=== PATIENT | female | born 1945 | race Caucasian/White ===

== ENCOUNTER 2018-02-27 09:40 | Inpatient (IN) ==
--- NOTE | 2018-02-26 22:04 | Discharge Summary ---
<Giuliano Galvez - Last Filed: 02/27/18 12:19> Orders not resulted at time of discharge: Pending orders 02/27/18 00:01 XR knee RT limited 1-2V [XR] Routine H/H [Hemoglobin and Hematocrit] [HEME] Routine Date of Encounter: 02/27/18 - Discharge Diagnosis (1) Morbid obesity with BMI of 40.0-44.9, adult Priority: Secondary Status: Chronic (2) Arthritis of right hip Priority: Primary Status: Chronic (3) Status post total hip replacement, right Priority: Primary Status: Acute (4) Decreased GFR Priority: Secondary Status: Chronic (5) HTN (hypertension) Priority: Secondary Status: Chronic Qualifiers: Hypertension type: essential hypertension Qualified Code(s): I10 - Essential (primary) hypertension (6) Hypothyroid Priority: Secondary Status: Chronic Qualifiers: Hypothyroidism type: unspecified Qualified Code(s): E03.9 - Hypothyroidism , unspecified - Hospital Course Hospital course: Ms. Beaulieu is a 73 year old female - Time Spent with Patient Total time spent providing and/or coordinating discharge services: - Discharge Medications Home Medications: Amlodipine Besylate 10 mg PO QPM 06/15/16 [History] Benazepril HCl [Lotensin] 40 mg PO QPM 06/15/16 [History] Carvedilol 12.5 mg PO BID 06/15/16 [History] Ergocalciferol (VITAMIN D2) [Vitamin D2] 50,000 unit PO THAKUR 06/15/16 [History] FLUoxetine HCl [Prozac] 20 mg PO HS 06/15/16 [History] Levothyroxine [Synthroid] 50 mcg PO DAILY 06/15/16 [History] HYDROcodone/Acet 5/325 mg [[place] 5-325 mg] 1 tab PO Q6H PRN 7 Days #28 tab 02/26 [Rx] Rivaroxaban [Xarelto] 10 mg PO DAILY 10 Days #10 tablet 02/26/18 [Rx] Allergies/Adverse Reactions: 3 Allergy/AdvReac Type Severity Reaction Status Date / Time aspirin Allergy Rash Verified 11/11/16 13:14 celecoxib [From Celebrex] Allergy Rash Verified 11/11/16 13:14 cephalexin [From Keflex] Allergy Rash Verified 11/11/16 13:14 ciprofloxacin [From Cipro] Allergy Hives Verified 11/11/16 13:14 clindamycin Allergy Rash Verified 02/27/18 10:26 meloxicam [From Mobic] Allergy Rash Verified 11/11/16 13:14 metronidazole [From Flagyl] Allergy Rash Verified 11/11/16 13:14 nabumetone [From Relafen] Allergy Rash Verified 11/11/16 13:14 Penicillins Allergy Rash Verified 11/11/16 13:14 Sulfa (Sulfonamide Allergy Rash Verified 11/11/16 13:14 Antibiotics) tramadol Allergy Rash Verified 02/27/18 10:27 Iodinated Contrast- Oral and AdvReac Flushing Verified 04/20/17 09:18 IV Dye meperidine [From Demerol] AdvReac Redness of Verified 11/11/16 13:14 Skin morphine AdvReac Redness of Verified 11/11/16 13:14 Skin Oxycodone [From OxyContin] AdvReac Itching Verified 11/11/16 13:14 Primary care physician: SONA Harp - Patient Status Disposition: Transfer Inpatient Rehab Fac Condition: Good - Discharge Instructions Follow Up With: Giuliano Galvez MD [Partnered Physician] - 03/29/18 4:35 pm Belkis Ferguson PAC [Physician Web Operations Manager] - 03/09/18 9:30 am (March 17, 2018 at 09:00 AM) Tisha Hendrix, USER EXPERIENCE DESIGNER [Primary Care Provider] - Additional Instructions: Discharge Instructions: Total Hip Replacement Please call [facility] ([phone]), your Primary Care Physician, or report to the Emergency Room if you have any of the following symptoms: Nausea, vomiting, fever greater that 101.5, swelling, chest pain, shortness of breath, increased pain/redness/drainage/odor for your incision site, numbness/ tingling, or any other concerning symptoms. ACTIVITY:Weight-bearing as tolerated for 8 weeks with hip dislocation precautions that physical therapy taught you. You may progress as tolerated under the guidance of your physical therapist. You do not need to sleep with a pillow between your legs. You can also seep on the operative side or on your stomach. Incentive Spirometer 10 times an hour. MEDICATIONS: Upon discharge resume your home medications. Take all the medications as prescribed. Take a stool softener if taking narcotic pain medications. Stool softeners are only effective if you drink enough fluids. Drink 6-8 glass of water or fluids a day, unless this is not allowed for another health problem. Despite using stool softeners, if you haven't had a bowel movement in 3 days, please switch to a gentle laxative. Gentle laxatives are sold over the counter. You should have a bowel movement within 24 hours, if not call the office. You will be discharged from the hospital with a prescription for pain medication. You are encouraged to decrease the use of narcotic pain medication as tolerated. Should you require a refill, please call the office. [facility] prescribes narcotic pain medication for only 4-6 weeks after surgery. If you require pain medication beyond this time period, you may be referred to your Primary Care Physician or to the Pain Clinic for further evaluation. Plan ahead for refills on pain medication as many narcotics either need to be picked up at the office or mailed. It is best to call 48-72 hours in advance of needing a prescription refill so you don't run out of medication. To help control the post-operative pain, you may take NSAIDs (Aleve,Advil, Motrin, ibuprofen, naprosyn) or Tylenol as prescribed on the bottle in addition to the pain medication. ANTICOAGULATION (blood thinners): Continue your Aspirin, Lovenox or Coumadin as prescribed to help prevent a blood clot in the leg or in the lungs. As long as your incision remains dry and you tolerate the NSAIDs (Aleve, Advil, Motrin, Ibuprofen, Naprosyn), it is OK to use the NSAIDS while you are taking your anticoagulation medication. Should your incision start to drain, stop the NSAID and contact our office. Common symptoms of blood clot in the legs include: localized pain, swelling, calf tenderness, redness or discoloration of the skin. Blood clot in the lung symptoms include: shortness of breath, rapid pulse, sweating, and chest pain that worsens with deep breathing, coughing up blood, lightheadedness, feelings of anxiety. If you experience any of these symptoms notify your physician immediately, go to the emergency room, or if having trouble breathing, call 911. WOUND CARE: Leave the dressing on for 7 to 10days. You may change the dressing if it is saturated greater than 50%. Do not get the dressing wet at anytime. Wash your hands with antibacterial soap, rinse and dry prior to any wound care. If you have ant the visiting nurse or rehab facility can remove the stapes 10-14 days after surgery and place steri-strips across the wound. Leave the steri-strips in place until they fall off on their own. You may let water from the shower run on top of the steri-strips. If you do not have a visiting nurse or rehab facility, you will need to return to the office at 10-14 days for the ant to be removed. If you have itching or redness around the dressing call the office. FOLLOW-UP: Please follow up with your surgeon in the orthopedic clinic in 6 weeks from the day of surgery. If you have ant that need to be removed, you will need to come back to the office in 10-14 days from the day of surgery. <Taylor Solis - Last Filed: 03/02/18 15:18> Date of Encounter: 03/02/18 Time of Encounter: 15:18 - Discharge Diagnosis (1) Status post total hip replacement, right Priority: Primary Status: Acute (2) Morbid obesity with BMI of 40.0-44.9, adult Priority: Secondary Status: Chronic (3) Arthritis of right hip Priority: Secondary Status: Chronic (4) Decreased GFR Priority: Secondary Status: Chronic (5) HTN (hypertension) Priority: Secondary Status: Chronic Qualifiers: Hypertension type: essential hypertension Qualified Code(s): I10 - Essential (primary) hypertension (6) Hypothyroid Priority: Secondary Status: Chronic Qualifiers: Hypothyroidism type: unspecified Qualified Code(s): E03.9 - Hypothyroidism , unspecified (7) Obesity Priority: Secondary Status: Chronic Qualifiers: Obesity type: due to excess calories Obesity classification: adult class 3 (BMI >= 40) Serious obesity comorbidity presence: without serious comorbidity Body mass index: BMI 50.0-59.9 Qualified Code(s): E66.01 - Morbid (severe) obesity due to excess calories; Z68.43 - Body mass index (BMI) 50-59.9 , adult - Hospital Course Hospital course: Ms. Beaulieu is a 73 year old female who is s/p Right THR robotic 02/27/14 with history of CKD, HTN, hypothyroidsm, decreased GFR, obesity. She developed acute blood loss anemia on POD#2 and received 1 unit RBC. She is stable for discharge. She was evaluated by Dr. Galvez this morning and recommended ready for discharge. Afebrile, vital signs stable. Dressings intact with minimal drainage. No calf tenderness to palpation. Grossly NV intact Labs reviewed. H/H - 9.8/29.8.received 1 unit RBC yesterday Pain control: adequate Participating in PT. All questions and concerns addressed. Educated on use of incentive spirometer. Encouraged ambulation and proper hydration. Patient educated on post-operative restrictions and post-operative care. She has allergy to oxycodone and ASA. NO lovenox. Will provide norco for pain control and xarelto for DVT prophylaxis Assessment and plan: Continue with postoperative care Discharge plan: Inpatient rehab swing bed [facility] today - Time Spent with Patient Total time spent providing and/or coordinating discharge services: Date of admission: 02/27/18 14:39 Primary care physician: SONA Harp Consults: 02/27/18 15:28 Consult to Nurse Navigator [CONS] Routine Comment: ortho navigator Consult to Occupational Therapy [CONS] Routine Comment: Evaluate, develop and implement POC Reason for Consult: total hip replacement Does patient have active BEDREST order?: No Is patient medically & hemodynamically stable?: Yes Consult to Physical Therapy [CONS] Routine Comment: Evaluate, develop and implement POC Reason for Consult: total hip replacement Does patient have active BEDREST order?: No Is patient medically & hemodynamically stable?: Yes Consult to Wheel Tuner [CONS] Routine Reason for SW Consult: post op joint replacement RT Post Op Consult [CONS] Routine Discharging clinician: Giuliano Galvez Anticipated date of discharge: 03/02/18 Labs on day of discharge: Labs from last 24 hours 03/02/18 03/02/18 02/27/18 06:02 06:02 17:06 WBC 11.1 RBC 3.32 L Hgb 9.8 L Hct 29.8 L MCV 89.8 MCH 29.5 MCHC 32.9 RDW 14.0 Plt Count 164 MPV 9.9 Immature Gran % 0.6 Seg Neutrophils % 72.3 Lymphocytes % 18.0 Monocytes % 7.4 Eosinophils % 1.4 Basophils % 0.3 Neutrophils # 8.0 Lymphocytes # 2.0 Monocytes # 0.8 Eosinophils # 0.2 Basophils # 0.0 Sodium 140 Potassium 4.2 Chloride 112 H Carbon Dioxide 23 BUN 36 H Creatinine 1.56 H Est GFR ( Amer) 39 L Est GFR (Non-Af Amer) 32 L BUN/Creatinine Ratio 23 Glucose 119 H Calculated Osmolality 299 Calcium 8.5 L Crossmatch See Detail - Impressions ITS Impressions Hip X-Ray 02/27/18 00:01 IMPRESSION: Suboptimal frog-leg views. Expected postsurgical changes involving a total right hip replacement. D/ / Heladio Proctor MD / Heladio Proctor MD Interpreting Provider: Heladio Proctor MD - Patient Status Functional capacity at discharge: uses cane/walker Overall status at discharge: patient is back to baseline - Diet and Activity Activity: as per physical therapy Diet: advance to your usual diet <Belkis Ferguson - Last Filed: 03/02/18 17:27> Date of Encounter: 03/02/18 - Discharge Diagnosis (1) Status post total hip replacement, right Priority: Primary Status: Acute (2) Arthritis of right hip Priority: Primary Status: Chronic (3) HTN (hypertension) Priority: Secondary Status: Chronic Qualifiers: Hypertension type: essential hypertension Qualified Code(s): I10 - Essential (primary) hypertension (4) Hypothyroid Priority: Secondary Status: Chronic Qualifiers: Hypothyroidism type: unspecified Qualified Code(s): E03.9 - Hypothyroidism , unspecified (5) Decreased GFR Priority: Secondary Status: Chronic (6) Obesity Priority: Secondary Status: Chronic Qualifiers: Obesity type: due to excess calories Obesity classification: adult class 3 (BMI >= 40) Serious obesity comorbidity presence: without serious comorbidity Body mass index: BMI 50.0-59.9 Qualified Code(s): E66.01 - Morbid (severe) obesity due to excess calories; Z68.43 - Body mass index (BMI) 50-59.9 , adult - Hospital Course Hospital course: Ms. Beaulieu is a 73 year old female - Time Spent with Patient Total time spent providing and/or coordinating discharge services: Primary care physician: SONA Harp
--- NOTE | 2018-02-27 09:52 | History & Physical Report ---
Date of Encounter: 02/27/18 Time of Encounter: 09:52 24 Hour HP Update - Instructions Instructions: If the History and Physical is less than 30 days old and was completed prior to A.M. admission and or procedure and has NOT been updated on calendar day of procedure please complete this update prior to performing procedure. - Update Patient reports changes in Medical Condition: No Changes in examination, assessment, or condition: No Changes in Medication: No Preop tests/diagnostics Reviewed: Yes Surgery Remains Indicated: Yes Consent for Planned Operative Procedure(s) Verified: Yes - Pre-Operative Checklist Preoperative Checklist Indicated: No Prophylactic Antibiotic Ordered: Yes Is VTE Prophylaxis Indicated?: Yes
[2018-02-27] MEDS ORDERED: Clindamycin 900 MG/50 ML 900 MG/50 ML IV.SOLN IVPB ONE (10:05)
[2018-02-27] MEDS ORDERED: Albuterol 2.5 MG/3 ML NEBULIZER IH ONE (10:09)
[2018-02-27] MEDS ORDERED: *HR* Propofol 200 MG/20 ML VIAL IVP ONE (10:50)
[2018-02-27] MEDS ORDERED: *HR* Midazolam HCl 2 MG/2 ML VIAL ONE (10:50)
[2018-02-27] MEDS ORDERED: *HR* FentaNYL (PF) 100 MCG/2 ML VIAL ONE (10:50)
[2018-02-27] MEDS ORDERED: Lidocaine -MPF 2% 2 ML VIAL ONE (10:51)
[2018-02-27] MEDS ORDERED: Dexamethasone 4 MG/ML VIAL ONE (10:51)
[2018-02-27] MEDS ORDERED: Ondansetron 4 MG/2 ML VIAL ONE (10:51)
[2018-02-27] MEDS ORDERED: *HR* FentaNYL (PF) 100 MCG/2 ML VIAL IVP PRN (10:54)
[2018-02-27] MEDS ORDERED: *HR* Promethazine 25 MG/ML VIAL IVP PRN (10:54)
--- NOTE | 2018-02-27 10:56 | Anesthesia Evaluation PreOp ---
Date of Encounter: 02/27/18 Time of Encounter: 11:15 - Past History Planned Operation: RIGHT BREE Cardiac History: HTN, Other (GOOD EXCERCISE TOLERANCE) Pulmonary History: Denies Any Significant HX BARREL WATERER History: Denies Any Significant HX Other Medical History: Renal (CKD3), Other (MORBID OBESITY, BMI 41) Anesthesia History: Past Anesthesia, Problems (Sore throat and difficulty speaking, No problems if smaller, well lubricated ETT) Alcohol Use: none Drug use: none Medications and Allergies Amlodipine Besylate 10 mg PO QPM 06/15/16 [History] Benazepril HCl [Lotensin] 40 mg PO QPM 06/15/16 [History] Carvedilol 12.5 mg PO BID 06/15/16 [History] Ergocalciferol (VITAMIN D2) [Vitamin D2] 50,000 unit PO THAKUR 06/15/16 [History] FLUoxetine HCl [PROzac] 20 mg PO HS 06/15/16 [History] Levothyroxine [Synthroid] 50 mcg PO DAILY 06/15/16 [History] HYDROcodone/Acet 5/325 mg [[place] 5-325 mg] 1 tab PO Q6H PRN 7 Days #28 tab 02/26 [Rx] Rivaroxaban [Xarelto] 10 mg PO DAILY 10 Days #10 tablet 02/26/18 [Rx] 3 Allergy/AdvReac Type Severity Reaction Status Date / Time aspirin Allergy Rash Verified 11/11/16 13:14 celecoxib [From Celebrex] Allergy Rash Verified 11/11/16 13:14 cephalexin [From Keflex] Allergy Rash Verified 11/11/16 13:14 ciprofloxacin [From Cipro] Allergy Hives Verified 11/11/16 13:14 clindamycin Allergy Rash Verified 02/27/18 10:26 meloxicam [From Mobic] Allergy Rash Verified 11/11/16 13:14 metronidazole [From Flagyl] Allergy Rash Verified 11/11/16 13:14 nabumetone [From Relafen] Allergy Rash Verified 11/11/16 13:14 Penicillins Allergy Rash Verified 11/11/16 13:14 Sulfa (Sulfonamide Allergy Rash Verified 11/11/16 13:14 Antibiotics) tramadol Allergy Rash Verified 02/27/18 10:27 Iodinated Contrast- Oral and AdvReac Flushing Verified 04/20/17 09:18 IV Dye meperidine [From Demerol] AdvReac Redness of Verified 11/11/16 13:14 Skin morphine AdvReac Redness of Verified 11/11/16 13:14 Skin Oxycodone [From OxyContin] AdvReac Itching Verified 11/11/16 13:14 - Meds/Allergy Pre-op Review Medications Reviewed: Yes ([facility] MED LIST NOT UPDATED THIS VISIT) Allergies Reviewed: Yes Beta Blockers on Current Med List: Yes If Beta Blockers taken, Date/Time (Last Dose taken): 0700 Anesthesia Results - Labs Laboratory Tests 09/27/17 02/20/18 02/20/18 12:42 12:22 12:22 Hgb 13.4 Hct 39.1 Plt Count 204 Sodium 142 Potassium 4.0 Chloride 111 H Carbon Dioxide 25 BUN 35 H Creatinine 1.46 H Est GFR (Non-Af Amer) 35 L Calcium 10.0 - Imaging EKG: report reviewed (LOW QRS VOLTAGE IN PRECORDIAL LEADS MINIMAL VOLTAGE CRITERIA FOR LVH, CONSIDER NORMAL VARIANT POSSIBLE ANTERIOR MYOCARDIAL INFARCTION, PROBABLY OLD INFERIOR MYOCARDIAL INFARCTION, PROBABLY OLD) Anesthesia Exam O2 Sat Height 1.6 m Weight 103.873 kg BMI 41 Vital Signs Temp Pulse Resp BP Pulse Ox 97.9 F 58 18 143/70 96 02/27/18 10:06 02/27/18 10:06 02/27/18 10:06 02/27/18 10:06 02/27/18 10:06 - HEENT Pupil (Motor): Pupils equal Mallampati: III Teeth: Missing, Poor dentition (NONE LOOSE) Oral Opening: Greater than 3 - BARREL WATERER LOC: Oriented - Cardiac Rhythm: Regular - Pulmonary Breath Sounds: bilateral Clear - Additional Findings CURRENT MEDICATIONS: Taking Fluoxetine HCl 20MG Capsule, Sig: TAKE ONE CAPSULE BY MOUTH IN THE MORNING Taking Benazepril HCl 40MG Tablet, Sig: TAKE ONE TABLET BY MOUTH ONCE DAILY Taking Amlodipine Besylate 10MG tablet, Sig: TAKE ONE TABLET BY MOUTH ONCE DAILY Taking Levothyroxine Sodium 50MCG tablet, Sig: TAKE ONE TABLET BY MOUTH IN THE MORNING ON EMPTY STOMACH Taking Vitamin D (Ergocalciferol) 41790 UNIT Capsule, Si capsule Orally Once a week Taking Carvedilol 12.5MG Tablet, Sig: TAKE ONE TABLET BY MOUTH TWICE DAILY WITH FOOD Anesthesia Assess/Plan ASA Score: 3 Modified Jeff Scale for Level of Consciousness: Cooperative, oriented, and tranquil Anesthetic Plan: General Monitoring Plan: Standard Monitors Recovery Plan: PACU Anes Supervising Prov Stmt: Patient informed and consented. ALTERNATIVE ANESTHESIA TECHNIQUES, GA VS SAB, RISKS AND BENEFITS DISCUSSED. PATIENT PREFERS GA. Patient wishes to proceed.
[2018-02-27] MEDS ORDERED: Ethanol\\Acetic Acid\\Na Ace\\Ben 1,000 ML IRRIG.SOLN IR ONE (11:16)
[2018-02-27] MEDS ORDERED: Acetaminophen IV 1,000 MG/100 ML INFUS..BTL IVPB ONE (11:31)
[2018-02-27] MEDS ORDERED: *HR* HYDROmorphone 2 MG TABLET ONE (11:34)
[2018-02-27] MEDS ORDERED: CeFAZolin Syr 2,000MG/20 ML 2,000 MG/20 ML SYRINGE IVPB ONE (12:15)
[2018-02-27] MEDS ORDERED: EPHEDrine 50 MG/ML VIAL ONE (12:25)
--- NOTE | 2018-02-27 13:12 | Orthopedic Operative Note ---
Date of procedure: 02/27/18 Pre-op diagnosis: Right hip arthritis Post-op diagnosis: same Procedure: Procedure: Right Total Hip Replacment robotic-assisted Estimated blood loss: 200 cc Hardware: Metal and polyethylene replacement. [place] DM Cup: 56 cup Femoral size 8 stem Head: 4 head with Aneta Procedural Notes: Grade 4 arthritic changes femoral head acetabular socket, procedure performed with robotic assistance. 10 mm leg length discrepancy operative leg shorter than nonoperative as measured by CT scan operative Operative procedure: The patient was brought to the operating room and placed on the operating room table. After general anesthesia was administered the patient was placed in the lateral decubitus position with the operative leg up. All pressure points were padded appropriately and the head was stabilized in the neutral position. The operative extremity was prepped and draped in the sterile surgical fashion patient received IV antibiotic prior to skin incision. 3 Steinmann pins were placed in the iliac crest 3 cm proximal to the anterior superior iliac spine this was for the robotic-assisted sensor. This was done through a small 2 cm incision. A standard posterior approach is made to the operative hip, the incision was made through the skin and subcutaneous tissue hemostasis was obtained with Bovie cautery. Using careful sharp dissection the fascia was identified and incised exposing the external rotators. Patient appeared to have had an old injury to the attachment of the vastus medialis. This had a compromised attachment. The femoral checkpoint was placed leg length was measured at this time utilizing robotic assistance. The external rotators were released off the greater trochanter and tagged with #2 FiberWire suture. The capsule was T'd open and the hip was brought into internal rotation. Patient noted to have grade 4 arthritic changes femoral head. The femoral neck cut was made at the appropriate level roughly 15 mm proximal to the lesser trochanter aced on preoperative templating. An anterior capsulotomy was performed for the anterior retractor. Soft tissues removed from the acetabulum. Patient noted to have grade 4 arthritic changes acetabulum. The acetabulum checkpoint was placed confirmed. The acetabulum was then mapped with robotic assistance. Based on the preoperative plan the acetabulum was reamed in one step with a 55 reamer. The 56 acetabulum was impacted with robotic assistance and 40 degrees of abduction and 20 degrees of anteversion. The hip was brought back in to internal rotation and prepared with the box puller followed by the canal finder followed by the reaming process to a size 7/ 8 broaching process in 20 degrees anteversion. It was broached up to the appropriate size 8. Trial reduction revealed leg lengths close to normal. The femoral implant was impacted in place in 20 degrees of anteversion. Trial reduction found the hip to be stable with 4 head and Aneta. The trials were removed and the real implants were impacted in place. The hip was reduced, patient had robotic confirmed leg length of 3 mm longer than the contralateral side. The hip had excellent stability with forward flexion to 90 degrees adduction of 30 degrees and internal rotation of 60 degrees. The hip had no shuck. The hips after 2 minutes with a antibacterial solution. It was irrigated out with 2 L of pulse irrigation. The checkpoints were removed, Steinmann pins were removed. The hip was closed by the PA. The deep tissue was irrigated and closed deep with #1 PDS suture superficially with 0 PDS suture and skin was closed with Dermabond and zip tie. The patient was placed in a sterile dressing and abduction pillow. The patient was extubated and transferred to the recovery room in stable condition. Anesthesia: MAKSIMA Surgeon: Giuliano Galvez Was there an liaison inspection laboratory assistant present: No Estimated blood loss (cc): 200 Condition: stable Disposition: PACU
[2018-02-27 14:22] LABS: Hematocrit 31.3 % (35.3-44.9); Hemoglobin 10.7 g/dL (11.5-15.4)
[2018-02-27] MEDS ORDERED: MOM Conc 10 ML UD.LIQ PO PRN (15:28)
[2018-02-27] MEDS ORDERED: Ondansetron 4 MG/2 ML VIAL IVP PRN (15:28)
[2018-02-27] MEDS ORDERED: traMADol 50 MG TABLET PO PRN (15:28)
[2018-02-27] MEDS ORDERED: Temazepam 15 MG CAPSULE PO PRN (15:28)
[2018-02-27] MEDS ORDERED: Naloxone 0.4 MG/ML INJ IVP PRN (15:28)
[2018-02-27] MEDS ORDERED: Sennosides 8.6 MG TABLET PO PRN (15:28)
[2018-02-27] MEDS: *HR* OxyCODONE Immed Rel 5 MG TABLET PO PRN (16:12)
--- NOTE | 2018-02-27 17:16 | Anesthesia Evaluation Post Op ---
Date of Encounter: 02/27/18 Time of Encounter: 14:18 Notes: Patient's vital signs have been reviewed. Patient is stable postoperatively and has adequately recovered from anesthesia. Patient is determined to have stable airway patency and respiratory function including respiratory rate and oxygen saturation. Patient has a stable heart rate, blood pressure and adequate hydration. Patients mental status is acceptable. Patients temperature is appropriate. Pain and nausea are adequately controlled. - Discharge PostOp Status: Transfer Patient to floor
[2018-02-27] MEDS: amLODIPine 5 MG TABLET PO SCH (18:19)
[2018-02-27] MEDS: Ascorbic Acid 500 MG TABLET PO SCH (18:19)
[2018-02-27] MEDS: Lisinopril 20 MG TABLET PO SCH (18:19)
[2018-02-27] MEDS: FLUoxetine 20 MG CAPSULE PO SCH (20:48)
[2018-02-27] MEDS: *HR* OxyCODONE/APAP 5/325 TABLET PO PRN (20:57)
[2018-02-27] MEDS: Ringers Solution, Lactated 1,000 ML IVC SCH (22:36)
[2018-02-28] MEDS: Ringers Solution, Lactated 1,000 ML IVC SCH (01:34)
[2018-02-28 02:26] LABS: Hematocrit 30.8 % (35.3-44.9); Hemoglobin 10.5 g/dL (11.5-15.4)
[2018-02-28 02:44] LABS: Calcium 8.6 mg/dL (8.6-10.3); Potassium 4.7 mEq/L (3.5-5.1)
[2018-02-28] MEDS: *HR* Rivaroxaban 10 MG TABLET PO SCH (06:03)
--- NOTE | 2018-02-28 06:46 | Orthopedics Progress Note ---
Date of Encounter: 02/28/18 Time of Encounter: 06:46 - Assessment and Plan (1) Morbid obesity with BMI of 40.0-44.9, adult Current Visit: Yes Status: Chronic (2) Arthritis of right hip Current Visit: No Status: Chronic (3) Status post total hip replacement, right Current Visit: No Status: Acute (4) Decreased GFR Current Visit: No Status: Chronic (5) HTN (hypertension) Current Visit: No Status: Chronic Qualifiers: Hypertension type: essential hypertension Qualified Code(s): I10 - Essential (primary) hypertension (6) Hypothyroid Current Visit: No Status: Chronic Qualifiers: Hypothyroidism type: unspecified Qualified Code(s): E03.9 - Hypothyroidism , unspecified Subjective Interval history: Patient was seen this morning doing well without complaints. Afebrile vital signs stable. Operative extremity: Neurovascularly intact Dressing clean dry and intact Calves nontender Assessment and plan: Continue with postoperative care Hematocrit 30 Objective Vital signs: Vital Signs Temp Pulse Resp BP Pulse Ox 02/28/18 03:59 98.0 F 58 16 143/70 95 02/27/18 23:16 98.2 F 59 16 125/70 97 02/27/18 21:12 94 02/27/18 19:12 98.0 F 55 16 133/75 97 02/27/18 18:07 97.7 F 55 18 139/79 95 02/27/18 17:11 97.6 F 56 16 140/86 95 02/27/18 16:10 97.6 F 57 18 144/85 95 02/27/18 15:40 97.6 F 54 15 133/67 97 02/27/18 15:10 97.5 F L 55 15 137/63 97 02/27/18 14:29 55 16 148/78 96 02/27/18 14:19 58 16 147/77 96 02/27/18 14:09 97.1 F L 57 18 142/71 96 02/27/18 13:59 59 16 145/78 96 02/27/18 13:49 64 16 174/101 98 02/27/18 13:39 97.8 F 59 16 167/87 99 02/27/18 10:06 97.9 F 58 18 143/70 96 Intake and Output 02/27/18 02/27/18 02/28/18 15:59 23:59 07:59 Intake Total 460 / 460 350 / 350 Output Total 200 / 200 0 / 0 Balance -200 / -200 460 / 460 350 / 350 Intake: IV Fluids 100 / 100 Ancef 2,000 MG In 0.9 % Sodium 100 / 100 Chloride 100 ML @ 200 mls/hr IVPB Q8H NEFTALI Rx#:[id number] Oral 360 / 360 350 / 350 Output: Urine 0 / 0 Estimated Blood Loss 200 / 200 Other: Meal Dinner Percent of Meal Consumed 100% # Voids 1 1 Weight 103.873 kg - Labs CBC & BMP: 02/28/18 01:55 02/28/18 01:55 Labs: Abnormal lab results Hgb 10.5 g/dL (11.5-15.4) L 02/28/18 01:55 Hct 30.8 % (35.3-44.9) L 02/28/18 01:55 Chloride 111 mEq/L (98-107) H 02/28/18 01:55 BUN 29 mg/dL (8-23) H 02/28/18 01:55 Creatinine 1.58 mg/dL (0.60-1.20) H 02/28/18 01:55 Est GFR ( Amer) 39 (> 60) L 02/28/18 01:55 Est GFR (Non-Af Amer) 32 (> 60) L 02/28/18 01:55 Glucose 176 mg/dL (70-105) H 02/28/18 01:55 Calculated Osmolality 302 (280-300) H 02/28/18 01:55 - VTE Documentation of Mechanical Device: Venous foot pump, device Consult Discharge Plan - Plan Referrals: Tisha Hendrix CNP [Primary Care Provider] -
[2018-02-28] MEDS: Ascorbic Acid 500 MG TABLET PO SCH ×2 (07:45→17:42)
[2018-02-28] MEDS: Multivit/Ca/Min/Fe/FA 1 TAB TABLET PO SCH (07:45)
[2018-02-28] MEDS ORDERED: 0.9 % Sodium Chloride 500 ML IVC ONE (12:09)
[2018-02-28] MEDS: *HR* OxyCODONE Immed Rel 5 MG TABLET PO PRN (13:48)
[2018-02-28] MEDS: Lisinopril 20 MG TABLET PO SCH (17:42)
[2018-02-28] MEDS: amLODIPine 5 MG TABLET PO SCH (17:42)
--- NOTE | 2018-02-28 20:21 | Event Note ---
Date of Encounter: 02/28/18 Time of Encounter: 12:20 PCR - POD#.1 s/p Right THR robotic 02/27/14 Patient seen at bedside, without complaints. A&O x 3 Afebrile, vital signs stable. Dressings intact with minimal drainage. No calf tenderness to palpation. Labs reviewed. H/H - stable, asymptomatic 10.5/30.8 Pain control: adequate Participating in PT. All questions and concerns addressed. Educated on use of incentive spirometer. Encouraged ambulation and proper hydration. Patient educated on post-operative restrictions and post-operative care. Assessment and plan: Continue with postoperative care - add bolus fluids due to elevated Cr 1.58 and low GFR 32. will continue to monitor and requested strict I &Os Discharge plan: Inpatient rehab swing bed She has allergy to oxycodone and ASA. NO lovenox. Will provide norco for pain control and xarelto for DVT prophylaxis
--- NOTE | 2018-02-28 20:33 | Physician Discharge Referral ---
ExtendedCare Referral Info Transfer To: [facility] Provider in Charge: Dr. Galvez - Diagnosis (1) Status post total hip replacement, right Priority: Primary Status: Acute (2) Morbid obesity with BMI of 40.0-44.9, adult Priority: Secondary Status: Chronic (3) Arthritis of right hip Priority: Secondary Status: Chronic (4) Decreased GFR Priority: Secondary Status: Chronic (5) HTN (hypertension) Priority: Secondary Status: Chronic (6) Hypothyroid Priority: Secondary Status: Chronic (7) Obesity Priority: Secondary Status: Chronic Expected Duration of Placement: <30 days Prognosis: Good Aware of Diagnosis: Patient Aware of Prognosis: Patient - Transfer Medications Home Medications: Amlodipine Besylate 10 mg PO QPM 06/15/16 [History] Benazepril HCl [Lotensin] 40 mg PO QPM 06/15/16 [History] Carvedilol 12.5 mg PO BID 06/15/16 [History] Ergocalciferol (VITAMIN D2) [Vitamin D2] 50,000 unit PO THAKUR 06/15/16 [History] FLUoxetine HCl [Prozac] 20 mg PO HS 06/15/16 [History] Levothyroxine [Synthroid] 50 mcg PO DAILY 06/15/16 [History] HYDROcodone/Acet 5/325 mg [[place] 5-325 mg] 1 tab PO Q6H PRN 7 Days #28 tab 02/26 [Rx] Rivaroxaban [Xarelto] 10 mg PO DAILY 10 Days #10 tablet 02/26/18 [Rx] Allergies/Adverse Reactions: 3 Allergy/AdvReac Type Severity Reaction Status Date / Time aspirin Allergy Rash Verified 11/11/16 13:14 celecoxib [From Celebrex] Allergy Rash Verified 11/11/16 13:14 cephalexin [From Keflex] Allergy Rash Verified 11/11/16 13:14 ciprofloxacin [From Cipro] Allergy Hives Verified 11/11/16 13:14 clindamycin Allergy Rash Verified 02/27/18 10:26 meloxicam [From Mobic] Allergy Rash Verified 11/11/16 13:14 metronidazole [From Flagyl] Allergy Rash Verified 11/11/16 13:14 nabumetone [From Relafen] Allergy Rash Verified 11/11/16 13:14 Penicillins Allergy Rash Verified 11/11/16 13:14 Sulfa (Sulfonamide Allergy Rash Verified 11/11/16 13:14 Antibiotics) tramadol Allergy Rash Verified 02/27/18 10:27 Iodinated Contrast- Oral and AdvReac Flushing Verified 04/20/17 09:18 IV Dye meperidine [From Demerol] AdvReac Redness of Verified 11/11/16 13:14 Skin morphine AdvReac Redness of Verified 11/11/16 13:14 Skin Oxycodone [From OxyContin] AdvReac Itching Verified 11/11/16 13:14 - Respiratory Orders Smoking Cessation: Smoking cessation has been advised. For more information, call the [place] Tobacco Quit Line at 2-702-NARJ-NOW. - Ancillary Orders May use pressure relief devices daily prn, May go on SANCHO w/family/respon republican w /meds at nurse discretion PRN, May consult with Dentist, Bias Cutter Helper, Build Master PRN - Mobility Orders Chair, Ambulate - Rehabiliation Orders Rehab Potential: Good Rehab Orders: Evaluation for Physical Therapy, Evaluation for Occupational Therapy - Treatments Skin tear care topically daily PRN per policy List/Other: Opsite dressing, leave intact until first post-operative visit. If dressing becomes >50% saturated, contact office, remove dressing and place appropriate dressing in its place. Do not allow for dressing to get wet. Zipline/Arnol in place, plan to remove at post-operative day #14-16. Total Joint Precautions x 6 weeks Apply cold therapy wrap 3-6x/day for 20 minutes at a time. Encourage ambulation throughout the day Use Incentive spirometer 10x/hour. Elevate affected extremity above heart as tolerated. Brace: Wear hip abductor brace at night x 6 weeks. - Diet Orders Regular CERTIFICATION: I certify that the transfer of the above named patient to an Extended Care Facility is necessary for the continuing treatment of the diagnosis listed. The above information is true and accurate reflection of patient's current condition. Confidential - Redisclosure prohibited without a patient's written consent.
[2018-02-28] MEDS: FLUoxetine 20 MG CAPSULE PO SCH (20:34)
[2018-03-01 04:59] LABS: Hematocrit 26.9 % (35.3-44.9); Hemoglobin 9.1 g/dL (11.5-15.4)
[2018-03-01 05:14] LABS: Calcium 8.1 mg/dL (8.6-10.3); Potassium 4.3 mEq/L (3.5-5.1)
[2018-03-01] MEDS: *HR* Rivaroxaban 10 MG TABLET PO SCH (05:30)
[2018-03-01] MEDS: Multivit/Ca/Min/Fe/FA 1 TAB TABLET PO SCH (09:15)
[2018-03-01] MEDS ORDERED: 0.9 % Sodium Chloride 250 ML IVC SCH (09:15)
[2018-03-01] MEDS: Ascorbic Acid 500 MG TABLET PO SCH ×2 (09:17→17:32)
[2018-03-01] MEDS: Ringers Solution, Lactated 1,000 ML IVC SCH (15:35)
[2018-03-01] MEDS: Lisinopril 20 MG TABLET PO SCH (17:32)
[2018-03-01] MEDS: amLODIPine 5 MG TABLET PO SCH (17:32)
--- NOTE | 2018-03-01 17:33 | Orthopedics Progress Note ---
Date of Encounter: 03/01/18 Time of Encounter: 12:20 - Assessment and Plan (1) Status post total hip replacement, right Current Visit: No Status: Acute PCR - POD#.2 s/p Right THR robotic 02/27/14 Patient seen at bedside, without complaints. A&O x 3 Afebrile, vital signs stable. Dressings intact with minimal drainage. No calf tenderness to palpation. Grossly NV intact Labs reviewed. H/H - 9.1/26.9. Cr 1.71, BUN 39, She does have baseline CKD. Receive 1 unit RBC today and then restart fluid hydration. She lost IV access last night so this was reestablished this morning. Pain control: adequate Participating in PT. All questions and concerns addressed. Educated on use of incentive spirometer. Encouraged ambulation and proper hydration. Patient educated on post-operative restrictions and post-operative care. She has allergy to oxycodone and ASA. NO lovenox. Will provide norco for pain control and xarelto for DVT prophylaxis Assessment and plan: Continue with postoperative care, will continue to monitor and requested strict I&Os, urine output is improving. Discharge plan: Inpatient rehab swing bed [facility] accepted 03/02/18 (2) Morbid obesity with BMI of 40.0-44.9, adult Current Visit: Yes Status: Chronic (3) Arthritis of right hip Current Visit: No Status: Chronic (4) Decreased GFR Current Visit: No Status: Chronic (5) HTN (hypertension) Current Visit: No Status: Chronic Qualifiers: Hypertension type: essential hypertension Qualified Code(s): I10 - Essential (primary) hypertension (6) Hypothyroid Current Visit: No Status: Chronic Qualifiers: Hypothyroidism type: unspecified Qualified Code(s): E03.9 - Hypothyroidism , unspecified (7) Obesity Current Visit: No Status: Chronic Qualifiers: Obesity type: due to excess calories Obesity classification: adult class 3 (BMI >= 40) Serious obesity comorbidity presence: without serious comorbidity Body mass index: BMI 50.0-59.9 Qualified Code(s): E66.01 - Morbid (severe) obesity due to excess calories; Z68.43 - Body mass index (BMI) 50-59.9 , adult Objective Vital signs: Vital Signs Temp Pulse Resp BP Pulse Ox 03/01/18 15:18 99.1 F 71 16 143/69 94 08/15/18 12:15 98.5 F 69 16 144/72 94 03/01/18 12:00 98.5 F 62 15 139/68 95 03/01/18 11:13 98.7 F 74 20 131/71 94 03/01/18 07:00 98.5 F 69 18 120/80 93 02/28/18 23:58 98.7 F 69 14 102/55 94 02/28/18 19:43 99.3 F 67 16 123/68 92 Intake and Output 03/01/18 03/01/18 03/01/18 07:59 15:59 23:59 Intake Total 50 / 50 698 / 698 Output Total 700 / 700 Balance -650 / -650 698 / 698 Intake: Oral 50 / 50 360 / 360 Blood Product 338 / 338 Rbcs Leuko Poor As-1 Unit 338 / 338 [id number] Output: Urine 700 / 700 Other: Meal Lunch Percent of Meal Consumed 100% # Voids 1 - Labs CBC & BMP: 03/01/18 04:13 03/01/18 04:13 Labs: Abnormal lab results Hgb 9.1 g/dL (11.5-15.4) L 03/01/18 04:13 Hct 26.9 % (35.3-44.9) L 03/01/18 04:13 Chloride 110 mEq/L (98-107) H 03/01/18 04:13 BUN 39 mg/dL (8-23) H 03/01/18 04:13 Creatinine 1.71 mg/dL (0.60-1.20) H 03/01/18 04:13 Est GFR ( Amer) 35 (> 60) L 03/01/18 04:13 Est GFR (Non-Af Amer) 29 (> 60) L 03/01/18 04:13 Glucose 146 mg/dL (70-105) H 03/01/18 04:13 Calcium 8.1 mg/dL (8.6-10.3) L 03/01/18 04:13 - VTE Documentation of Mechanical Device: Venous foot pump, device Consult Discharge Plan - Plan Referrals: Tisha Hendrix [employer] VESSEL OPERATOR [Primary Care Provider] -
[2018-03-01] MEDS: *HR* OxyCODONE/APAP 5/325 TABLET PO PRN (20:07)
[2018-03-01] MEDS: FLUoxetine 20 MG CAPSULE PO SCH (20:08)
[2018-03-02] MEDS: *HR* OxyCODONE/APAP 5/325 TABLET PO PRN ×2 (00:41→13:18)
[2018-03-02] MEDS: Ringers Solution, Lactated 1,000 ML IVC SCH (05:06)
[2018-03-02] MEDS: *HR* Rivaroxaban 10 MG TABLET PO SCH (05:07)
[2018-03-02 06:51] LABS: Basophils % 0.3 %; Eosinophils # 0.2 K/mcL (0.0-0.6); Eosinophils % 1.4 %; Hematocrit 29.8 % (35.3-44.9); Hemoglobin 9.8 g/dL (11.5-15.4); Immature Granulocytes % 0.6 % (0-4); Mean Corpuscular HGB Conc 32.9 g/dL (31.6-35.5); Mean Corpuscular Hemoglobin 29.5 pg (28.0-33.3); Mean Corpuscular Volume 89.8 fL (83.0-100.0); Mean Platelet Volume 9.9 fL (9.4-12.4); Monocytes # 0.8 K/mcL (0.0-1.3); Monocytes % 7.4 %; Platelet Count 164 K/mcL (140-400); Red Blood Count 3.32 M/mcL (3.82-4.97); Segmented Neutrophils % 72.3 %
[2018-03-02 07:03] LABS: Calcium 8.5 mg/dL (8.6-10.3); Potassium 4.2 mEq/L (3.5-5.1)
--- NOTE | 2018-03-02 07:52 | Orthopedics Progress Note ---
Date of Encounter: 03/02/18 Time of Encounter: 07:52 - Assessment and Plan (1) Morbid obesity with BMI of 40.0-44.9, adult Current Visit: Yes Status: Chronic (2) Arthritis of right hip Current Visit: No Status: Chronic (3) Status post total hip replacement, right Current Visit: No Status: Acute (4) Decreased GFR Current Visit: No Status: Chronic (5) HTN (hypertension) Current Visit: No Status: Chronic Qualifiers: Hypertension type: essential hypertension Qualified Code(s): I10 - Essential (primary) hypertension (6) Hypothyroid Current Visit: No Status: Chronic Qualifiers: Hypothyroidism type: unspecified Qualified Code(s): E03.9 - Hypothyroidism , unspecified (7) Acute blood loss anemia Current Visit: Yes Status: Acute Subjective Interval history: Patient was seen this morning doing well without complaints. Afebrile vital signs stable. Operative extremity: Neurovascularly intact Dressing clean dry and intact Calves nontender Assessment and plan: Continue with postoperative care Discharged today Objective Vital signs: Vital Signs Temp Pulse Resp BP Pulse Ox 03/02/18 07:21 98.8 F 63 16 130/68 93 03/02/18 00:15 99.0 F 69 16 129/67 94 03/01/18 19:07 99.3 F 73 12 159/74 94 03/01/18 17:30 75 151/77 03/01/18 15:18 99.1 F 71 16 143/69 94 03/01/18 12:15 98.5 F 69 16 144/72 94 03/01/18 12:00 98.5 F 62 15 139/68 95 03/01/18 11:13 98.7 F 74 20 131/71 94 Intake and Output 03/01/18 03/01/18 03/02/18 15:59 23:59 07:59 Intake Total 698 / 698 1100 / 1100 Balance 698 / 698 1100 / 1100 Intake: IV Fluids 1000 / 1000 Lactated Ringers 1,000 ML @ 75 1000 / 1000 mls/hr IVC .[id number] NEFTALI Rx#: [id number] Oral 360 / 360 100 / 100 Blood Product 338 / 338 Rbcs Leuko Poor As-1 Unit 338 / 338 [id number] Other: Meal Lunch Percent of Meal Consumed 100% # Voids 1 1 - Labs CBC & BMP: 03/02/18 06:02 03/02/18 06:02 Labs: Abnormal lab results RBC 3.32 M/mcL (3.82-4.97) L 03/02/18 06:02 Hgb 9.8 g/dL (11.5-15.4) L 03/02/18 06:02 Hct 29.8 % (35.3-44.9) L 03/02/18 06:02 Chloride 112 mEq/L (98-107) H 03/02/18 06:02 BUN 36 mg/dL (8-23) H 03/02/18 06:02 Creatinine 1.56 mg/dL (0.60-1.20) H 03/02/18 06:02 Est GFR ( Amer) 39 (> 60) L 03/02/18 06:02 Est GFR (Non-Af Amer) 32 (> 60) L 03/02/18 06:02 Glucose 119 mg/dL (70-105) H 03/02/18 06:02 Calcium 8.5 mg/dL (8.6-10.3) L 03/02/18 06:02 - VTE Documentation of Mechanical Device: Venous foot pump, device Consult Discharge Plan - Plan Referrals: Tisha Hendrix MILLINERY WORKER [Primary Care Provider] -
[2018-03-02] MEDS: Multivit/Ca/Min/Fe/FA 1 TAB TABLET PO SCH (08:02)
[2018-03-02] MEDS: Ascorbic Acid 500 MG TABLET PO SCH (08:02)
[2018-03-02 12:07] VITALS: BP 131/71
== END 2018-03-02 13:50 | DRG 470 ==
LOC: SAMDAY 09:40 → 3NENU 14:39
PROVIDERS: ADMIT Orthopaedic Surgery; ATTEND Orthopaedic Surgery